=== PATIENT | male | born 1985 | race Caucasian/White ===

== ENCOUNTER 2023-12-23 22:36 | Emergency (ER) | payer OTHER ==
[~2023-12-23] VITALS: Ht 172.7 cm; Wt 97.5 kg
[2023-12-23 22:55] VITALS: BP 135/78; PULSE 54; RESP 20; TEMP 98.2; O2SAT 97
[2023-12-24 00:26] VITALS: BP 135/78; PULSE 54; RESP 20; TEMP 98.2; O2SAT 97
[2023-12-24] MEDS: ACETAMINOPHEN EXTRA STRENGTH 500 MG TAB PO ONE (01:08)
== END 2023-12-24 01:16 | disposition home or self-care (01) ==
LOC: MED 22:36
DX: S09.90XA Unspecified injury of head, initial encounter (principal); W22.8XXA Striking against or struck by other objects, initial encounter; Y93.89 Activity, other specified; Y92.89 Other specified places as the place of occurrence of the external cause; Y99.8 Other external cause status
CPT/HCPCS: 99282